=== PATIENT | female | born 1985 | race Caucasian/White ===

== ENCOUNTER 2024-07-12 16:30 | Emergency (ER) | payer SELFPAY ==
[~2024-07-12] VITALS: Ht 165.1 cm; Wt 64.9 kg
[2024-07-12 16:35] VITALS: PULSE 73; RESP 18; TEMP 97.7; O2SAT 100
[2024-07-12] MEDS ORDERED: MYRBETRIQ25 MG (17:00)
== END 2024-07-12 17:30 | disposition left against medical advice (07) ==
LOC: FSED 16:35
DX: R10.2 Pelvic and perineal pain (principal)